=== PATIENT | male | born 1990 | race Caucasian/White ===

== ENCOUNTER 2017-06-04 19:08 | Emergency (ER) | payer OTHER, BC ==
[2017-06-04 19:17] VITALS: RESP 18; TEMP 97.9
[2017-06-04] MEDS ORDERED: TDAP VACCINE 0.5 ML SUS IM ONE ×2 (19:27→19:28)
[2017-06-04 19:48] VITALS: BP 152/68; PULSE 102; O2SAT 99
== END 2017-06-04 19:46 | disposition home or self-care (01) | DRG 605 ==
LOC: ED 19:08
DX: S01.01XA Laceration without foreign body of scalp, initial encounter (principal); W22.8XXA Striking against or struck by other objects, initial encounter; Y99.0 Civilian activity done for income or pay
CPT/HCPCS: 12002; 90471; 90715; 99284